=== PATIENT | female | born 1960 | race Caucasian/White ===

== ENCOUNTER → 2016-08-17 | Outpatient (CLI) | payer BC ==
[2016-02-26 14:25] VITALS: BP 132/80
[2016-08-17 12:02] LABS: BILIRUBIN,URINE NEGATIVE (NEGATIVE); BLOOD/HEMOGLOBIN,URINE NEGATIVE (NEGATIVE); GLUCOSE, URINE NEGATIVE (NEGATIVE); KETONES,URINE NEGATIVE (NEGATIVE); LEUKOCYTE ESTERASE ,URINE NEGATIVE (NEGATIVE); NITRITES,URINE NEGATIVE (NEGATIVE); PH,URINE 6.5 (5.0 - 8.0); PROTEIN,URINE NEGATIVE (NEGATIVE); UROBILINOGEN,URINE NORMAL (NORMAL)
[2016-08-17 12:10] LABS: APPEARANCE,URINE CLEAR (CLEAR); BACTERIA,URINE NEGATIVE /HPF (NEGATIVE); COLOR,URINE YELLOW (YELLOW); RBC,URINE 0-1 /HPF (NEGATIVE); SQUAMOUS EPITHELIAL CELL,UR RARE /HPF (NEGATIVE)
[2016-08-17 12:15] LABS: ALANINE AMINOTRANSFERASE 31 Units/L (12-78); ALBUMIN 3.8 g/dL (3.4-5.0); ALKALINE PHOSPHATASE 67 Units/L (46-116); ASPARTATE AMINO TRANSFERASE 18 Units/L (15-37); BLOOD UREA NITROGEN 18 mg/dL (7-18); CALCIUM 9.4 mg/dL (8.5-10.1); CARBON DIOXIDE 26.6 mmol/L (21-32); CHLORIDE 105 mmol/L (98-107); CREATININE 0.93 mg/dL (0.55-1.02); GLUCOSE 106 mg/dL (65-99); SODIUM 141 mmol/L (136-145); TOTAL PROTEIN 7.4 g/dL (6.4-8.2); eGFR BLACK RACES > 60 (>60); eGFR NON BLACK RACES > 60 (>60)
[2016-08-17 12:21] LABS: BASOPHILS # (AUTO) 0.1 X10^3/uL (0.0-0.1); BASOPHILS % (AUTO) 0.9 % (0.2-1.0); EOSINOPHILS # (AUTO) 0.2 x10^3/uL (0.0-0.2); EOSINOPHILS % (AUTO) 3.3 % (0.9-2.9); HEMATOCRIT 38.3 % (36.0-47.0); HEMOGLOBIN 13.2 g/dL (12.0-16.0); LYMPHOCYTES # (AUTO) 2.6 X10^3/uL (1.3-2.9); MEAN CORPUSCULAR HEMOGLOBIN 30.5 pg (27.0-34.0); MEAN CORPUSCULAR HGB CONC 34.4 g/dL (33.0-35.0); MEAN CORPUSCULAR VOLUME 88.6 fL (80.0-100.0); MEAN PLATELET VOLUME 9.6 fL (7.4-11.0); MONOCYTES # (AUTO) 0.5 x10^3/uL (0.3-0.8); NEUTROPHILS # (AUTO) 3.5 x10^3/uL (2.2-4.8); NEUTROPHILS % (AUTO) 50.8 % (42.0-75.0); PLATELET COUNT 182 X10^3/uL (150.0-450.0); RED BLOOD COUNT 4.32 X10^6/uL (3.5-5.4); RED CELL DISTRIBUTION WIDTH 13.2 % (11.6-16.5); WHITE BLOOD COUNT 6.8 X10^3/uL (3.6-10.0)
--- NOTE | 2016-08-17 14:13 | RAD ---
HISTORY: Preop bunion surgery Study: Chest two-view Comparison: February 24, 2016 Findings: The heart is within normal limits in size. The girish are normal. The lungs are well inflated but free of acute alveolar infiltrates. No pleural effusions are identified. The bony thorax is unremarkable . IMPRESSION: No significant abnormality identified Reported By:
== END ==
LOC: LAB 11:21
PROVIDERS: ATTEND Specialist
DX: Z01.818 Encounter for other preprocedural examination (principal); Z01.810 Encounter for preprocedural cardiovascular examination; Z01.811 Encounter for preprocedural respiratory examination; Z79.899 Other long term (current) drug therapy; Z11.8 Encounter for screening for other infectious and parasitic diseases; M21.611 Bunion of right foot; M21.612 Bunion of left foot
CPT/HCPCS: 36415; 71020; 80053; 81001; 85025; 87641; 93005; 93010

== ENCOUNTER 2016-08-19 07:04 | Day surgery (SDC) | payer BC ==
[2016-08-19] MEDS ORDERED: NS 50 ML IV + SPIKE MINIBAG* 50 ML IV ONE (07:18)
[2016-08-19] MEDS ORDERED: D5 LR 1000 ML 1,000 ML IV ONE (07:18)
[2016-08-19] MEDS ORDERED: ANCEF VIAL 1 GM ONE (07:18)
[2016-08-19] MEDS ORDERED: MARCAINE 0.25% INJ ONE (07:45)
[2016-08-19] MEDS ORDERED: FENTANYL INJ 250 mcg ONE (08:14)
[2016-08-19] MEDS ORDERED: NS IRRIGATION 1000 ML 1,000 ML with BACITRACIN VIAL 50,000 UNT IR ONE ×2 (09:08)
[2016-08-19] MEDS ORDERED: LR 1000 ML IV 1,000 ML IV ONE (09:47)
[2016-08-19] MEDS ORDERED: DILAUDID INJ ONE (10:37)
[2016-08-19] MEDS ORDERED: ZOFRAN INJ 4 MG VIAL IVP PRN (10:39)
[2016-08-19] MEDS ORDERED: REGLAN INJ 10 MG VIAL IVP PRN (10:39)
[2016-08-19] MEDS ORDERED: BENADRYL INJ 50 MG VIAL IVP PRN (10:39)
[2016-08-19] MEDS ORDERED: PHENERGAN INJ 25 MG IVP PRN (10:39)
[2016-08-19] MEDS: DILAUDID INJ IVP PRN ×4 (10:40→11:06)
[2016-08-19 12:19] VITALS: BP 113/73
[2016-08-19] MEDS ORDERED: REGLAN INJ 10 MG VIAL ONE (14:16)
[2016-08-19] MEDS ORDERED: SUPRANE IN ONE (14:16)
[2016-08-19] MEDS ORDERED: DIPRIVAN VIAL ONE (14:16)
[2016-08-19] MEDS ORDERED: ZOFRAN INJ 4 MG VIAL ONE (14:16)
[2016-08-19] MEDS ORDERED: VERSED ONE (14:16)
== END 2016-08-19 12:10 | disposition home or self-care (01) | DRG 505 ==
LOC: SURG1 07:04
PROVIDERS: ATTEND Specialist
PROC: 0QBR0ZZ Excision of Left Toe Phalanx, Open Approach (ICD-10-PCS; principal; 2016-08-19 08:30)
PROC: 0QSN0ZZ Reposition Right Metatarsal, Open Approach (ICD-10-PCS; principal; 2016-08-19 08:30)
DX: M21.611 Bunion of right foot (principal); M21.612 Bunion of left foot; M20.11 Hallux valgus (acquired), right foot; M20.12 Hallux valgus (acquired), left foot
CPT/HCPCS: A4222; S0020; J0690; J1170; J2250; J2405; J2765; J3010; J3490; J7120

== ENCOUNTER → 2016-10-01 | Outpatient (CLI) | payer BC ==
--- NOTE | 2016-10-01 12:02 | RAD ---
HISTORY: Followup from surgery Study: 3 views of the right foot. Comparison: None Findings: No acute fracture or dislocation. Status post surgical repair of hallux valgus. No significant soft tissue swelling or injury can be seen. IMPRESSION: 1. No acute abnormalities in the right foot. Expected postsurgical findings. Reported By:
--- NOTE | 2016-10-01 12:03 | RAD ---
HISTORY: Followup from surgery Study: 3 views of the left foot. Comparison: None Findings: No acute fracture or dislocation. Expected postsurgical findings status post hallux valgus repair sup erior Joint spaces are well aligned. No significant soft tissue swelling or injury can be seen. IMPRESSION: 1. No acute abnormalities in the left foot. Expected postsurgical findings. Reported By:
== END ==
LOC: RAD 10:01
PROVIDERS: ATTEND Specialist
DX: M20.11 Hallux valgus (acquired), right foot (principal); M20.12 Hallux valgus (acquired), left foot
CPT/HCPCS: 73630

== ENCOUNTER 2022-11-09 08:02 | Inpatient (IN) ==
--- NOTE | 2022-11-09 08:14 | DR.SOBA ---
HPI Time Seen Time Seen by Provider: 11/09/22 08:13 Primary Care Physician Primary Care Physician: EMILY Fuentes HPI Comment HPI Comment: PATIENT IS 62YR OLD FEMALE IN ER WITH SUDDEN ONSET OF SOB ABD OXYGEN DESATURATION THAT STARTED THIS AM. PATIENT HAVE HAD COUGH AND CONGESTION FOR PAST FEW DAYS. PATIENT HAVE HISTORY OF Complaints Chief Complaint Doctors Comments: SOB AND OXYGEN DESATURATION TIS AM. COUGH AND CONGESTION FOR FEW DAYS. Chief Complaint:: Pt c/o 4-5 days of productive cough with green sputum. Pt states that while at work this morning she wasn't feeling well and went to walk to her car and suddenly felt like it was very hard to breathe and as if she mi ght pass out. Source History Provided: Patient Mode of Arrival Mode of Arrival: Ambulatory Timing Onset of Chief Complaint: 11/09/22 PMH PMH Past Medical History: Yes Past Medical History: Anxiety, Dyslipidemia, GERD and Hypertension Past Medical History Comment: DVT,PE Past Surgical History: Yes Surgical History: Appendectomy and Cholecystectomy Past Surgical History Comment: Yari Ely Family History History of Family Medical Conditions: Yes Family Medical History: Cancer, [place], Coronary Artery Disease and Hypertension Social History Does patient currently use any type of tobacco product: No Have you used tobacco products in the last 12 months: No Type of Tobacco Use: None Does any household member use tobacco: No Alcohol Use: None Do you use any recreational Drugs:: No Lives With: Spouse Lives Where: Home Infectious screening In the last 2 months have you had wt loss of >10#?: NO Have you had fever, night sweats or hemotysis?: No Have you traveled outside the country in the last 6 months?: No Isolation: Droplet PE Vital Signs Vitals: Vital Signs Temperature 98.1 F Pulse Rate 91 Pulse Rate 84 Pulse Rate 83 Pulse Rate 91 Pulse Rate 92 Pulse Rate 88 Pulse Rate 89 Pulse Rate 93 Pulse Rate 102 Pulse Rate 95 Pulse Rate 84 Pulse Rate 85 Pulse Rate 84 Pulse Rate 87 Pulse Rate 86 Pulse Rate 84 Pulse Rate 85 Pulse Rate 85 Pulse Rate 87 Pulse Rate 92 Pulse Rate 88 Respiratory Rate 25 Respiratory Rate 19 Respiratory Rate 17 Respiratory Rate 26 Respiratory Rate 36 Respiratory Rate 29 Respiratory Rate 23 Respiratory Rate 29 Respiratory Rate 24 Respiratory Rate 19 Respiratory Rate 22 Respiratory Rate 21 Respiratory Rate 13 Respiratory Rate 24 Respiratory Rate 23 Respiratory Rate 22 Respiratory Rate 23 Respiratory Rate 29 Respiratory Rate 20 Respiratory Rate 24 Respiratory Rate 21 Blood Pressure 106/66 Blood Pressure 116/68 Blood Pressure 109/83 Blood Pressure 108/75 Blood Pressure 113/74 Blood Pressure 123/68 Blood Pressure 89/66 Blood Pressure 96/69 Blood Pressure 96/63 Blood Pressure 108/72 O2 Sat by Pulse Oximetry 99 O2 Sat by Pulse Oximetry 99 O2 Sat by Pulse Oximetry 98 O2 Sat by Pulse Oximetry 92 O2 Sat by Pulse Oximetry 97 O2 Sat by Pulse Oximetry 100 O2 Sat by Pulse Oximetry 98 O2 Sat by Pulse Oximetry 96 O2 Sat by Pulse Oximetry 94 O2 Sat by Pulse Oximetry 83 O2 Sat by Pulse Oximetry 100 O2 Sat by Pulse Oximetry 100 O2 Sat by Pulse Oximetry 98 O2 Sat by Pulse Oximetry 98 O2 Sat by Pulse Oximetry 98 O2 Sat by Pulse Oximetry 99 O2 Sat by Pulse Oximetry 97 O2 Sat by Pulse Oximetry 98 O2 Sat by Pulse Oximetry 86 O2 Sat by Pulse Oximetry 72 O2 Sat by Pulse Oximetry 92 ROR Labs Reviewed 11/09/22 08:18 11/09/22 08:18 Laboratory: WBC 8.0 X10^3/uL (3.6-10.0) 11/09/22 08:18 RBC 4.43 X10^6/uL (3.5-5.4) 11/09/22 08:18 Hgb 13.0 g/dL (12.0-16.0) 11/09/22 08:18 Hct 38.7 % (36.0-47.0) 11/09/22 08:18 MCV 87.4 fL (80.0-100.0) 11/09/22 08:18 MCH 29.3 pg (27.0-34.0) 11/09/22 08:18 MCHC 33.5 g/dL (33.0-35.0) 11/09/22 08:18 RDW 13.7 % (11.6-16.5) 11/09/22 08:18 Plt Count 225 X10^3/uL (150.0-450.0) 11/09/22 08:18 MPV 9.7 fL (7.4-11.0) 11/09/22 08:18 Neut % (Auto) 32.3 % (42.0-75.0) L 11/09/22 08:18 Lymph % (Auto) 54.6 % (21.0-51.0) H 11/09/22 08:18 [place] % (Auto) 8.6 % (0.0-13.0) 11/09/22 08:18 Eos % (Auto) 3.7 % (0.9-2.9) H 11/09/22 08:18 Baso % (Auto) 0.8 % (0.2-1.0) 11/09/22 08:18 Neut # (Auto) 2.6 x10^3/uL (2.2-4.8) 11/09/22 08:18 Lymph # (Auto) 4.4 X10^3/uL (1.3-2.9) H 11/09/22 08:18 [place] # (Auto) 0.7 x10^3/uL (0.3-0.8) 11/09/22 08:18 Eos # (Auto) 0.3 x10^3/uL (0.0-0.2) H 11/09/22 08:18 Baso # (Auto) 0.1 X10^3/uL (0.0-0.1) 11/09/22 08:18 Absolute Nucleated RBC 0.1 /100WBC 11/09/22 08:18 PT 13.7 SECONDS (11.8-14.3) 11/09/22 08:18 INR Target Range - 11/09/22 08:18 INR 1.07 (0.8-1.3) 11/09/22 08:18 APTT 27.8 SECONDS (22.9-36.5) 11/09/22 08:18 PTT Comment - 11/09/22 08:18 D-Dimer 6.93 ug/ml (0.0-0.57) H 11/09/22 08:18 Sample Site Lra 11/09/22 08:18 ABG pH 7.400 (7.35-7.45) 11/09/22 08:18 ABG pCO2 36.0 mmHg (35.0-45.0) 11/09/22 08:18 ABG pO2 43.0 mmHg (80.0-100.0) L* 11/09/22 08:18 ABG HCO3 22.3 mmol/L (22-26) 11/09/22 08:18 ABG O2 Saturation 79.0 % (90-100) L* 11/09/22 08:18 ABG Base Excess -2.1 mmol/L (-2.0-2.0) L 11/09/22 08:18 Tonny Test Pos 11/09/22 08:18 A-a Gradient 62.0 mmHg 11/09/22 08:18 FiO2 21.0 11/09/22 08:18 Blood Gas Comments Pt trav well eb 11/09/22 08:18 Sodium 143 mmol/L (136-145) 11/09/22 08:18 Corrected Sodium 144 mmol/L (136-145) 11/09/22 08:18 Potassium 3.9 mmol/L (3.5-5.1) 11/09/22 08:18 Chloride 108 mmol/L (98-107) H 11/09/22 08:18 Carbon Dioxide 22.4 mmol/L (21-32) 11/09/22 08:18 BUN 21 mg/dL (7-18) H 11/09/22 08:18 Creatinine 1.33 mg/dL (0.55-1.02) H 11/09/22 08:18 Est GFR (MDRD) Af Amer 52 (>60) L 11/09/22 08:18 Est GFR (MDRD) Non-Af 43 (>60) L 11/09/22 08:18 Glucose 134 mg/dL (65-99) H 11/09/22 08:18 Calcium 9.3 mg/dL (8.5-10.1) 11/09/22 08:18 Corrected Calcium TNP 11/09/22 08:18 Total Bilirubin 0.30 mg/dL (0.2-1.0) 11/09/22 08:18 AST 16 Units/L (15-37) 11/09/22 08:18 ALT 18 Units/L (12-78) 11/09/22 08:18 Alkaline Phosphatase 103 Units/L (46-116) 11/09/22 08:18 Creatine Kinase 60 Units/L (26-192) 11/09/22 08:18 Troponin I High Sens 5.7 ng/L (4.0-60.0) 11/09/22 08:18 B-Natriuretic Peptide 30.3 pg/mL (0-79) 11/09/22 08:18 Total Protein 7.3 g/dL (6.4-8.2) 11/09/22 08:18 Albumin 3.4 g/dL (3.4-5.0) 11/09/22 08:18 Globulin 3.9 g/dL (2.5-4.5) 11/09/22 08:18 Albumin/Globulin Ratio 0.9 Ratio (1.1-2.1) L 11/09/22 08:18 SARS-CoV-2 (PCR) Negative (NEGATIVE) 11/09/22 08:08 Influenza Type A (PCR) Negative (NEGATIVE) 11/09/22 08:08 Influenza Type B (PCR) Negative (NEGATIVE) 11/09/22 08:08 RSV (PCR) Negative (NEGATIVE) 11/09/22 08:08 Opioid Opioid Risk Tool Total: 0 Total Score Risk Category: Low Risk Copyright: Luis Enrique AVENDANO predicting aberrant behaviors Discharge Plan Diagnosis Discharge Problem: Bilateral pulmonary embolism, Hypoxia, Bronchitis Discharge Plan Patient Disposition: 01 HOME, SELF-CARE Condition: Stable Orders to Discharge Patient Discharge Orders: Transfer (Routine); Ordered 11/09/22 Ordered By: TRAVON DEGROOT
--- NOTE | 2022-11-09 08:19 | EKG ---
Test Reason : hypoxia Blood Pressure : */* mmHG Vent. Rate : 85 BPM Atrial Rate : 85 BPM P-R Int : 188 ms QRS Dur : 84 ms QT Int : 364 ms P-R-T Axes : 46 0 -1 degrees QTc Int : 433 ms Normal sinus rhythm Cannot rule out Anterior infarct , age undetermined ns st/t abnormality Abnormal ECG No previous ECGs available Confirmed by Dion Saunders MD ([id number]) on 11/10/2022 9:40:53 AM Referred By: Confirmed By: Dion Saunders MD
[2022-11-09 08:21] LABS: ABG BASE EXCESS -2.1 mmol/L (-2.0-2.0); ABG HCO3 22.3 mmol/L (22-26)
[2022-11-09 08:22] LABS: ABG ALLEN TEST POS
[2022-11-09] MEDS ORDERED: NS 1,000 ML IV 1,000 ML ONE ×2 (08:29→11:08)
[2022-11-09] MEDS: NS 1,000 ML IV 1,000 ML IV SCH ×4 (08:33→20:00)
--- NOTE | 2022-11-09 08:38 | RAD ---
HISTORYShortness of breathSTUDYChest AP portableCOMPARISONNoneFINDINGSHeart size is normal. Ammy are normal. Lung escalante are clear. No pleural effusions are identified. Bony thorax is unremarkable.IMPRESSIONNo significant abnormality identifiedElectronically signed by: NATHANAEL HARE (Nov 09, 2022 08:32:17)
[2022-11-09 08:46] LABS: BASOPHILS # (AUTO) 0.1 X10^3/uL (0.0-0.1); BASOPHILS % (AUTO) 0.8 % (0.2-1.0); EOSINOPHILS # (AUTO) 0.3 x10^3/uL (0.0-0.2); EOSINOPHILS % (AUTO) 3.7 % (0.9-2.9); HEMATOCRIT 38.7 % (36.0-47.0); LYMPHOCYTES # (AUTO) 4.4 X10^3/uL (1.3-2.9); LYMPHOCYTES % (AUTO) 54.6 % (21.0-51.0); MEAN CORPUSCULAR HEMOGLOBIN 29.3 pg (27.0-34.0); MEAN CORPUSCULAR HGB CONC 33.5 g/dL (33.0-35.0); MEAN CORPUSCULAR VOLUME 87.4 fL (80.0-100.0); MEAN PLATELET VOLUME 9.7 fL (7.4-11.0); MONOCYTES # (AUTO) 0.7 x10^3/uL (0.3-0.8); MONOCYTES % (AUTO) 8.6 % (0.0-13.0); NEUTROPHILS # (AUTO) 2.6 x10^3/uL (2.2-4.8); NEUTROPHILS % (AUTO) 32.3 % (42.0-75.0); PLATELET COUNT 225 X10^3/uL (150.0-450.0); RED BLOOD COUNT 4.43 X10^6/uL (3.5-5.4); RED CELL DISTRIBUTION WIDTH 13.7 % (11.6-16.5)
[2022-11-09 08:50] LABS: INR 1.07 (0.8-1.3)
[2022-11-09 09:10] LABS: ALANINE AMINOTRANSFERASE 18 Units/L (12-78); ALBUMIN 3.4 g/dL (3.4-5.0); ALKALINE PHOSPHATASE 103 Units/L (46-116); ASPARTATE AMINO TRANSFERASE 16 Units/L (15-37); BLOOD UREA NITROGEN 21 mg/dL (7-18); CALCIUM 9.3 mg/dL (8.5-10.1); CARBON DIOXIDE 22.4 mmol/L (21-32); CHLORIDE 108 mmol/L (98-107); COR NA(FOR HYPERGLY) 144 mmol/L (136-145); CREATINE KINASE 60 Units/L (26-192); CREATININE 1.33 mg/dL (0.55-1.02); GLUCOSE 134 mg/dL (65-99); POTASSIUM 3.9 mmol/L (3.5-5.1); SODIUM 143 mmol/L (136-145); TOTAL PROTEIN 7.3 g/dL (6.4-8.2); eGFR NON BLACK RACES 43 (>60)
[2022-11-09] MEDS ORDERED: OMNIPAQUE 350 mg/mL 100 mL BTL 100 ML ONE (09:20)
[2022-11-09] MEDS ORDERED: NS 100 ML IV 100 ML ONE (09:20)
--- NOTE | 2022-11-09 10:14 | CT ---
EXAM:CTA, CHESTHISTORY:HYPOXIA; APPENDIX, GB, ABD SURGERYCOMPARISON:CTA chest from 09/25/2021. CT chest from 01/20/2022.TECHNIQUE:CTA chest protocol with axial images from the thoracic inlet to upper abdomen with IV contrast. Sagittal and coronal reformats and MIP images were created. Automated exposure control was utilized.FINDINGS:Limitations: There is streak artifact from contrast in the left subclavian vein and SVC.Thyroid gland is partially obscured by artifact but no abnormality is identified. Non atherosclerotic normal caliber thoracic aorta.There is partial thrombus in the most distal aspect of the right main pulmonary artery image 58 series 4. There is complete or near complete thrombus in the right lower lobe posterior segment, medial segment, lateral segment, and anterior segment. Partial thrombus extends into the right interlobar pulmonary artery. There is complete thrombus in the right middle lobe medial segment image 68 series 4 and near-complete thrombus in the lateral segment image 70 series 4. Pulmonary embolus extends into all upper lobe segments on the right which appear complete. On the left there is PE involving the anterior and apicoposterior segments which is near complete image 40 series 4. There is complete thrombus involving the superior lingular segment image 50 series 4 and involving at least the proximal inferior lingular segment. There is thrombus in the left lower lobe pulmonary artery branches involving most if not all segments, worst in the posterior segment which is complete image 76 series 4. The pulmonary artery trunk measures 3 cm mediolateral image 53 series 4 which is within normal limits. There is reversal of the interventricular septum and a borderline RV to LV ratio of 1.9. There is reflux of contrast into the IVC.The heart is normal in size. No pericardial effusion. No pathologic adenopathy in the thorax. Status post cholecystectomy. Atrophic right kidney. Nodular area in the right breast measures 1.3 cm AP image 62 series 4. No acute osseous abnormality. The trachea and mainstem bronchi appear patent. There are scattered mild ground-glass opacities such as in the lingula, right lower lobe, and left lower lobe on image 68 series 5. No consolidation. No pleural effusion or pneumothorax.IMPRESSION:Bilateral PE as described above. Reversal of the interventricular septum suggests right heart strain.Mild scattered ground-glass opacities are nonspecific but may represent subsegmental atelectasis.Right breast nodule measuring 1.3 cm is similar to prior CTA chest from 09/25/2021. Mammogram and ultrasound performed after this exam described benign ACR category 2 findings. Therefore recommend routine mammogram.THIS IS AN ELECTRONICALLY VERIFIED FINAL [id number]/09/2022 10:09 AM - Electronically signed by Cristopher Sigala MD
[2022-11-09] MEDS ORDERED: HEPARIN SODIUM INJ 5000 UNITS IVP ONE (10:27)
[2022-11-09] MEDS ORDERED: HEPARIN SODIUM INJ 5000 UNITS ONE (10:29)
[2022-11-09] MEDS ORDERED: HEPARIN SODIUM IN D5W 25,000 UNITS/500 ML BAG ONE (10:29)
[2022-11-09] MEDS ORDERED: ROCEPHIN VIAL 1 GRAM IV ONE (10:31)
[2022-11-09] MEDS ORDERED: ROCEPHIN VIAL 1 GRAM ONE (10:32)
[2022-11-09] MEDS: HEPARIN SODIUM IN D5W 25,000 UNITS/500 ML BAG IV PRN (10:56)
[2022-11-09 11:13] LABS: BILIRUBIN,URINE NEGATIVE (NEGATIVE); BLOOD/HEMOGLOBIN,URINE NEGATIVE (NEGATIVE); GLUCOSE, URINE NEGATIVE (NEGATIVE); KETONES,URINE NEGATIVE (NEGATIVE); LEUKOCYTE ESTERASE ,URINE NEGATIVE (NEGATIVE); NITRITES,URINE NEGATIVE (NEGATIVE); PROTEIN,URINE 1+ (NEGATIVE); UROBILINOGEN,URINE NORMAL (NORMAL)
[2022-11-09 11:15] LABS: APPEARANCE,URINE CLEAR (CLEAR); COLOR,URINE YELLOW (YELLOW)
[2022-11-09 11:19] LABS: BACTERIA,URINE NEGATIVE /HPF (NEGATIVE); RBC,URINE NONE SEEN /HPF (0-3); SQUAMOUS EPITHELIAL CELL,UR RARE /HPF (NEGATIVE)
[2022-11-09 11:20] LABS: HYALINE CASTS, URINE RARE /LPF (NEGATIVE)
[2022-11-09] MEDS ORDERED: XANAX PO PRN (12:25)
[2022-11-09] MEDS: ROBITUSSIN DM PO SCH ×3 (13:00→21:46)
[2022-11-09 13:27] LABS: ERYTHROCYTE SEDIMENTATION RATE 6 MM/HOUR (0-20)
[2022-11-09] MEDS: SOLU-Medrol 40 MG VIAL IVP SCH ×4 (14:05→21:46)
--- NOTE | 2022-11-09 15:30 | EKG ---
Test Reason : elevated trponin Blood Pressure : */* mmHG Vent. Rate : 91 BPM Atrial Rate : 91 BPM P-R Int : 198 ms QRS Dur : 78 ms QT Int : 366 ms P-R-T Axes : 44 -3 20 degrees QTc Int : 450 ms Normal sinus rhythm Low voltage QRS Cannot rule out Anterior infarct (cited on or before 09-NOV-2022) Abnormal ECG When compared with ECG of 09-NOV-2022 08:17, (Unconfirmed) anterior t wave abnormality more noticeable Confirmed by Dion Saunders MD ([id number]) on 11/10/2022 9:41:54 AM Referred By: Confirmed By: Dion Saunders MD
--- NOTE | 2022-11-09 17:40 | VAS ---
EXAM:LOWER EXT VENOUS, BILATERALHISTORY:; PECOMPARISON:None available.TECHNIQUE:Multiple gallego scale and color flow Doppler images of the deep venous system were obtained of the right and left lower extremity.FINDINGS:The deep venous system of the right and left lower extremities were evaluated from the level of the common femoral vein through the popliteal vein and posterior tibial veins. Normal color flow and augmentation can be observed. In addition, normal compression is seen throughout the deep venous system.IMPRESSION:Negative for DVT.THIS IS AN ELECTRONICALLY VERIFIED FINAL [id number]/09/2022 5:36 PM - Electronically signed by Steve Adams MD
[2022-11-09 18:15] VITALS: BMI 31.5
[2022-11-09] MEDS: TUSSIONEX PENNKINETIC SUSP PO PRN (19:35)
[2022-11-09] MEDS: ZOCOR TAB 20 MG PO SCH (21:11)
[2022-11-10] MEDS: SOLU-Medrol 40 MG VIAL IVP SCH ×3 (06:03→20:45)
[2022-11-10 06:48] LABS: BASOPHILS % (AUTO) 0.4 % (0.2-1.0); HEMATOCRIT 35.4 % (36.0-47.0); HEMOGLOBIN 12.3 g/dL (12.0-16.0); LYMPHOCYTES # (AUTO) 1.2 X10^3/uL (1.3-2.9); LYMPHOCYTES % (AUTO) 16.7 % (21.0-51.0); MEAN CORPUSCULAR HEMOGLOBIN 30.1 pg (27.0-34.0); MEAN CORPUSCULAR HGB CONC 34.7 g/dL (33.0-35.0); MEAN CORPUSCULAR VOLUME 86.8 fL (80.0-100.0); MEAN PLATELET VOLUME 9.5 fL (7.4-11.0); MONOCYTES # (AUTO) 0.3 x10^3/uL (0.3-0.8); MONOCYTES % (AUTO) 3.5 % (0.0-13.0); NEUTROPHILS # (AUTO) 5.8 x10^3/uL (2.2-4.8); NEUTROPHILS % (AUTO) 79.4 % (42.0-75.0); PLATELET COUNT 202 X10^3/uL (150.0-450.0); RED BLOOD COUNT 4.07 X10^6/uL (3.5-5.4); RED CELL DISTRIBUTION WIDTH 13.7 % (11.6-16.5); WHITE BLOOD COUNT 7.3 X10^3/uL (3.6-10.0)
[2022-11-10 07:09] LABS: ALANINE AMINOTRANSFERASE 18 Units/L (12-78); ALKALINE PHOSPHATASE 94 Units/L (46-116); ASPARTATE AMINO TRANSFERASE 13 Units/L (15-37); BLOOD UREA NITROGEN 15 mg/dL (7-18); CALCIUM 9.1 mg/dL (8.5-10.1); CARBON DIOXIDE 24.1 mmol/L (21-32); CHLORIDE 111 mmol/L (98-107); COR CA(FOR HYPOALB) 9.9 mg/dL (8.5-10.1); COR NA(FOR HYPERGLY) 145 mmol/L (136-145); CREATININE 1.14 mg/dL (0.55-1.02); GLUCOSE 160 mg/dL (65-99); MAGNESIUM 1.6 mg/dL (2.0-2.9); POTASSIUM 3.9 mmol/L (3.5-5.1); SODIUM 144 mmol/L (136-145); TOTAL PROTEIN 6.7 g/dL (6.4-8.2); eGFR NON BLACK RACES 52 (>60)
[2022-11-10] MEDS: PROTONIX TAB 40 MG PO SCH (09:45)
[2022-11-10] MEDS: ROCEPHIN VIAL 1 GRAM 1 G in NS 100 ML IV 100 ML IV SCH (09:45)
[2022-11-10] MEDS: PROzac PO SCH (09:45)
[2022-11-10] MEDS: TRICOR TAB 48 MG PO SCH (09:45)
[2022-11-10] MEDS: ROBITUSSIN DM PO SCH ×3 (09:45→17:30)
[2022-11-10] MEDS ORDERED: TYLENOL 325 MG TAB PO ONE (10:20)
[2022-11-10] MEDS: TYLENOL 325 MG TAB PO PRN (10:25)
[2022-11-10] MEDS: HEPARIN SODIUM IN D5W 25,000 UNITS/500 ML BAG IV PRN (10:32)
[2022-11-10] MEDS: NS 1,000 ML IV 1,000 ML IV SCH (12:00)
--- NOTE | 2022-11-10 18:32 | DR.H&P ---
H&P - History & Physical for Day of: H&P Date: 11/09/22 - Chief Complaint Chief Complaint: SOB - History of Present Illness History of Present Illness: PATIENT IS 62YR OLD FEMALE IN ER WITH SUDDEN ONSET OF SOB ABD OXYGEN DESATURATION THAT STARTED THIS AM. PATIENT HAVE HAD COUGH AND CONGESTION FOR PAST WEEK. PT REPORTS NO ENERGY. PT HAS PMH OF GERD, PE, HTN AND OA. - Past Medical History Past Medical History: Hypertension, Dyslipidemia, Anxiety, GERD - Past Surgical History Surgical History: Appendectomy, Cholecystectomy, Other - Family History Family Medical History: Cancer, [place], Coronary Artery Disease, Hypertension - Social History Does patient currently use any type of tobacco product: No Have you used tobacco products in the last 12 months: No Type of Tobacco Use: None Does any household member use tobacco: No Alcohol Use: None - Review of Systems Constitutional: Malaise Eyes: No Symptoms Reported ENT: No Symptoms Reported Respiratory: Cough, Shortness of Breath Cardiovascular: Palpitations Gastrointestinal: Nausea Genitourinary: No Symptoms Reported Musculoskeletal: No Symptoms Reported Skin: No Symptoms Reported Neurological: No Symptoms Reported - Physical Exam Vital Signs: Vital Signs Temperature 98.0 F Temperature 98.3 F Pulse Rate [Bilateral Radial] 89 Pulse Rate [Bilateral Radial] 98 Pulse Rate [Bilateral Radial] 98 Pulse Rate [Bilateral Radial] 86 Pulse Rate [Bilateral Radial] 86 Pulse Rate [Bilateral Radial] 94 Pulse Rate [Bilateral Radial] 94 Pulse Rate 88 Pulse Rate 91 Pulse Rate 91 Pulse Rate 97 Pulse Rate 98 Pulse Rate 92 Pulse Rate 87 Pulse Rate 90 Pulse Rate 89 Pulse Rate 95 Pulse Rate 93 Pulse Rate 90 Pulse Rate 103 Pulse Rate 97 Pulse Rate 94 Pulse Rate 92 Pulse Rate 96 Pulse Rate 90 Pulse Rate 86 Pulse Rate 96 Pulse Rate 93 Pulse Rate 92 Pulse Rate 97 Pulse Rate 94 Pulse Rate 93 Pulse Rate 93 Pulse Rate 95 Pulse Rate 94 Pulse Rate 89 Pulse Rate 92 Pulse Rate 87 Pulse Rate 102 Pulse Rate 92 Pulse Rate 83 Respiratory Rate 30 Respiratory Rate 42 Respiratory Rate 21 Respiratory Rate 33 Respiratory Rate 28 Respiratory Rate 24 Respiratory Rate 27 Respiratory Rate 18 Respiratory Rate 24 Respiratory Rate 21 Respiratory Rate 25 Respiratory Rate 39 Respiratory Rate 19 Respiratory Rate 28 Respiratory Rate 20 Respiratory Rate 34 Respiratory Rate 30 Respiratory Rate 22 Respiratory Rate 19 Respiratory Rate 20 Respiratory Rate 20 Respiratory Rate 22 Respiratory Rate 19 Respiratory Rate 29 Respiratory Rate 19 Respiratory Rate 21 Respiratory Rate 25 Respiratory Rate 30 Respiratory Rate 28 Respiratory Rate 28 Respiratory Rate 23 Respiratory Rate 40 Respiratory Rate 29 Respiratory Rate 25 Respiratory Rate 25 Respiratory Rate 27 Respiratory Rate 26 Respiratory Rate 20 Respiratory Rate 23 Respiratory Rate 26 Respiratory Rate 28 Respiratory Rate 22 Blood Pressure [Right Arm] 123/70 Blood Pressure [Right Arm] 135/74 Blood Pressure [Right Arm] 128/95 Blood Pressure [Right Arm] 128/65 Blood Pressure [Right Arm] 128/65 Blood Pressure [Right Arm] 131/81 Blood Pressure [Right Arm] 139/76 Blood Pressure 123/70 Blood Pressure 135/74 Blood Pressure 128/65 Blood Pressure 131/81 Blood Pressure 139/76 Blood Pressure 132/75 O2 Sat by Pulse Oximetry 96 O2 Sat by Pulse Oximetry 98 O2 Sat by Pulse Oximetry 96 O2 Sat by Pulse Oximetry 97 O2 Sat by Pulse Oximetry 99 O2 Sat by Pulse Oximetry 97 O2 Sat by Pulse Oximetry 98 O2 Sat by Pulse Oximetry 97 O2 Sat by Pulse Oximetry 97 O2 Sat by Pulse Oximetry 96 O2 Sat by Pulse Oximetry 97 O2 Sat by Pulse Oximetry 96 O2 Sat by Pulse Oximetry 97 O2 Sat by Pulse Oximetry 97 O2 Sat by Pulse Oximetry 96 O2 Sat by Pulse Oximetry 96 O2 Sat by Pulse Oximetry 97 O2 Sat by Pulse Oximetry 96 O2 Sat by Pulse Oximetry 98 O2 Sat by Pulse Oximetry 96 O2 Sat by Pulse Oximetry 96 O2 Sat by Pulse Oximetry 97 O2 Sat by Pulse Oximetry 98 O2 Sat by Pulse Oximetry 98 O2 Sat by Pulse Oximetry 98 O2 Sat by Pulse Oximetry 97 O2 Sat by Pulse Oximetry 97 O2 Sat by Pulse Oximetry 97 O2 Sat by Pulse Oximetry 96 O2 Sat by Pulse Oximetry 96 O2 Sat by Pulse Oximetry 98 O2 Sat by Pulse Oximetry 94 O2 Sat by Pulse Oximetry 95 O2 Sat by Pulse Oximetry 98 O2 Sat by Pulse Oximetry 98 O2 Sat by Pulse Oximetry 98 O2 Sat by Pulse Oximetry 97 O2 Sat by Pulse Oximetry 97 O2 Sat by Pulse Oximetry 89 O2 Sat by Pulse Oximetry 99 O2 Sat by Pulse Oximetry 97 Oriented: Normal Eyes: Normal, Diplopia Nose: Normal Throat: Normal Respiratory: Diminished Throughout Cardiovascular: Normal. negative: Edema : Normal Auscultation: Bowel Sounds: Normal Palpation: Normal Tenderness: Normal Skin: Normal Musculoskeletal: Normal Psychiatric: Anxiety Affect: Anxious Speech Pattern: Clear, Appropriate - Assessment/Plan (1) Bilateral pulmonary embolism Status: Acute Plan: ADMIT ICU, CARDIAC MONITORING. SUPPLEMENTAL O2. IV HYDRATION, I&OS, ABG ON ADMISSION. HEPARIN DRIP PER PROTCOL. VERIFY HOME MEDICATION. RESP AIT SWAB, IV ABTX, SOLU MEDROL (2) Hypoxia Status: Acute - Allergies Allergies/Adverse Reactions: Allergies Allergy/AdvReac Type Severity Reaction Status Date / Time No Known Allergies Allergy Verified 11/09/22 08:14 - Medications Home Medications: Home Medications Medication Instructions Recorded Confirmed alprazolam 0.5 mg tablet 0.5 mg PO QDAY PRN 11/09/22 11/09/22 aspirin 81 mg tablet 81 mg PO HS 11/09/22 11/09/22 fenofibrate 54 mg tablet 54 mg PO QDAY 11/09/22 11/09/22 fexofenadine-pseudoephedrine ER 1 tab PO QDAY 11/09/22 11/09/22 180 mg-240 mg tablet,ext.release 24 hr (Marissa-D 24 Hour) fluoxetine 10 mg capsule 10 mg PO DAILY 11/09/22 11/09/22 ibuprofen 800 mg tablet (IBU) 800 mg PO TID PRN 11/09/22 11/09/22 metoprolol tartrate 50 mg tablet 50 mg PO BID 11/09/22 11/09/22 pantoprazole 40 mg tablet,delayed 40 mg PO QDAY 11/09/22 11/09/22 release quetiapine 25 mg tablet 25 mg PO QPM 11/09/22 11/09/22 simvastatin 20 mg tablet 20 mg PO QPM 11/09/22 11/09/22 topiramate 50 mg tablet 50 mg PO BID 11/09/22 11/09/22
[2022-11-10] MEDS: TUSSIONEX PENNKINETIC SUSP PO PRN (20:44)
[2022-11-10] MEDS: ZOCOR TAB 20 MG PO SCH (20:45)
[2022-11-10] MEDS: SEROquel TAB 25 mg PO SCH (20:45)
[2022-11-11] MEDS: ROBITUSSIN DM PO SCH ×4 (03:25→20:03)
[2022-11-11] MEDS: SOLU-Medrol 40 MG VIAL IVP SCH ×3 (03:27→14:33)
[2022-11-11 05:24] LABS: BASOPHILS % (AUTO) 0 % (0.2-1.0); HEMATOCRIT 32.9 % (36.0-47.0); HEMOGLOBIN 11.4 g/dL (12.0-16.0); LYMPHOCYTES # (AUTO) 1.5 X10^3/uL (1.3-2.9); LYMPHOCYTES % (AUTO) 11.3 % (21.0-51.0); MEAN CORPUSCULAR HGB CONC 34.7 g/dL (33.0-35.0); MEAN CORPUSCULAR VOLUME 86.5 fL (80.0-100.0); MEAN PLATELET VOLUME 9.8 fL (7.4-11.0); MONOCYTES # (AUTO) 0.3 x10^3/uL (0.3-0.8); NEUTROPHILS # (AUTO) 11.9 x10^3/uL (2.2-4.8); NEUTROPHILS % (AUTO) 86.7 % (42.0-75.0); PLATELET COUNT 197 X10^3/uL (150.0-450.0); RED CELL DISTRIBUTION WIDTH 13.9 % (11.6-16.5); WHITE BLOOD COUNT 13.7 X10^3/uL (3.6-10.0)
[2022-11-11 05:35] LABS: ALANINE AMINOTRANSFERASE 14 Units/L (12-78); ALBUMIN 2.9 g/dL (3.4-5.0); ALKALINE PHOSPHATASE 84 Units/L (46-116); ASPARTATE AMINO TRANSFERASE 10 Units/L (15-37); BLOOD UREA NITROGEN 14 mg/dL (7-18); CALCIUM 9.2 mg/dL (8.5-10.1); CARBON DIOXIDE 23.7 mmol/L (21-32); CHLORIDE 111 mmol/L (98-107); COR CA(FOR HYPOALB) 10.1 mg/dL (8.5-10.1); COR NA(FOR HYPERGLY) 147 mmol/L (136-145); CREATININE 1.02 mg/dL (0.55-1.02); GLUCOSE 155 mg/dL (65-99); POTASSIUM 4.2 mmol/L (3.5-5.1); SODIUM 146 mmol/L (136-145); TOTAL PROTEIN 6.4 g/dL (6.4-8.2); eGFR NON BLACK RACES 59 (>60)
[2022-11-11] MEDS: NS 1,000 ML IV 1,000 ML IV SCH ×2 (05:38→14:34)
[2022-11-11] MEDS ORDERED: CONSULT PHARMACY - POTASSIUM & MAGNESIUM XX SCH ×2 (06:00)
[2022-11-11] MEDS ORDERED: MAG-OX TAB PO SCH (09:00)
[2022-11-11 09:07] LABS: ABG BASE EXCESS -0.4 mmol/L (-2.0-2.0); ABG HCO3 24.1 mmol/L (22-26)
[2022-11-11 09:08] LABS: ABG ALLEN TEST POS
[2022-11-11] MEDS: PROTONIX TAB 40 MG PO SCH (09:36)
[2022-11-11] MEDS: ELIQUIS PO SCH ×2 (09:36→20:03)
[2022-11-11] MEDS: PROzac PO SCH (09:36)
[2022-11-11] MEDS: TRICOR TAB 48 MG PO SCH (09:37)
[2022-11-11] MEDS: ROCEPHIN VIAL 1 GRAM 1 G in NS 100 ML IV 100 ML IV SCH (09:37)
[2022-11-11] MEDS: TYLENOL 325 MG TAB PO PRN (09:47)
--- NOTE | 2022-11-11 10:17 | RAD ---
EXAM:Chest AP portableHISTORY:Pulmonary embolus, pneumonia, shortness of breathCOMPARISON:11/09/2022FINDINGS:Hear t size is normal. Ammy are normal. There is a focus of subsegmental atelectasis in the left lung apex. Remainder of lung escalante are clear. No pleural effusions are identified. Bony thorax is unremarkable.IMPRESSION:No acute infiltratesSubsegmental atelectasis left upper lobeTHIS IS AN ELECTRONICALLY VERIFIED FINAL [id number]/11/2022 10:14 AM - Electronically signed by Hardeep Reddy MD
--- NOTE | 2022-11-11 18:00 | PCM.PROG ---
Progress Note - Progress Note for Day of Date of Exam: 11/10/22 - Subjective Subjective: PT IS 62 WF, ER ADMISSION WITH HYPOXIA DUE TO PE AND PNEUMONIA CONFIRMED ON CTA CHEST. PT IS CURRENTLY ON HEPARIN DRIP, IV ATBX THERAPY, SOLU MEDROL IV AND RESP THERAPY. PT HAS BEEN ON SUPPLEMENTAL O2, WITH ADMISSION PO2 ON ROOM AIR IN 40S. PT REPORTS SHE DID NOT REST WELL LAST PM. PT REPORTS MILD COUGH AND HOARSENESS. PT HAD ELEVATED TROPONIN AFTER ADMISSION THAT RESUMED TO NORMAL WITHOUT CO CHEST PAIN. PT DENIES ANY MPH OF CAD AND HAD ECHO AND STRESS TEST ~ 2020. PLAN TO OBATIN LAST STRESS TEST AND CONTINUE TREATMENT OF ACUTE RESP ILLNESS. - Past Medical Family Social History Past Med/Fam/Surg Hx: No changes since H&P Allergies: Allergies No Known Allergies Allergy (Verified 11/09/22 08:14) - Review of Systems ROS: No change since H&P - Vital Signs and I&O's Vital Signs: Vital Signs Temperature 98.4 F Temperature 98.4 F Temperature 97.9 F Pulse Rate [Bilateral Radial] 90 Pulse Rate [Bilateral Radial] 90 Pulse Rate [Bilateral Radial] 84 Pulse Rate [Bilateral Radial] 82 Pulse Rate [Bilateral Radial] 85 Pulse Rate [Bilateral Radial] 78 Pulse Rate [Bilateral Radial] 78 Pulse Rate [Bilateral Radial] 78 Pulse Rate 98 Pulse Rate 98 Pulse Rate 84 Pulse Rate 85 Pulse Rate 85 Pulse Rate 78 Pulse Rate 78 Pulse Rate 78 Respiratory Rate 22 Respiratory Rate 23 Respiratory Rate 22 Respiratory Rate 23 Respiratory Rate 17 Respiratory Rate 17 Respiratory Rate 22 Respiratory Rate 19 Respiratory Rate 22 Respiratory Rate 22 Respiratory Rate 16 Respiratory Rate 16 Respiratory Rate 16 Respiratory Rate 16 Respiratory Rate 18 Respiratory Rate 16 Respiratory Rate 16 Blood Pressure [Right Arm] 130/67 Blood Pressure [Right Arm] 130/67 Blood Pressure [Right Arm] 126/63 Blood Pressure [Right Arm] 123/68 Blood Pressure [Right Arm] 125/72 Blood Pressure [Right Arm] 124/67 Blood Pressure [Right Arm] 124/67 Blood Pressure [Right Arm] 124/67 Blood Pressure 139/79 Blood Pressure 139/79 Blood Pressure 126/63 Blood Pressure 125/72 Blood Pressure 125/72 Blood Pressure 124/67 Blood Pressure 124/67 Blood Pressure 124/67 O2 Sat by Pulse Oximetry 97 O2 Sat by Pulse Oximetry 97 O2 Sat by Pulse Oximetry 97 O2 Sat by Pulse Oximetry 97 O2 Sat by Pulse Oximetry 97 O2 Sat by Pulse Oximetry 97 O2 Sat by Pulse Oximetry 98 O2 Sat by Pulse Oximetry 97 O2 Sat by Pulse Oximetry 98 O2 Sat by Pulse Oximetry 98 O2 Sat by Pulse Oximetry 97 O2 Sat by Pulse Oximetry 97 O2 Sat by Pulse Oximetry 97 O2 Sat by Pulse Oximetry 97 O2 Sat by Pulse Oximetry 97 O2 Sat by Pulse Oximetry 98 Intake and Output: Intake & Output 11/09/22 11/10/22 11/11/22 11/12/22 11:59 11:59 11:59 11:59 Intake Total 2026 1490 / 1490 1968 Balance 2026 1490 / 1490 1968 - Physical Exam Oriented: Normal Eyes: Normal, Diplopia Nose: Normal Throat: Normal Respiratory: Diminished, Wheezes Cardiovascular: Normal. negative: Edema : Normal Auscultation: Bowel Sounds: Normal Tenderness: Normal Skin: Normal Musculoskeletal: Normal Psychiatric: Anxiety Affect: Anxious Speech Pattern: Clear, Appropriate - Laboratory and Diagnostics Result Diagrams: 11/11/22 04:25 11/11/22 04:25 Labs: 11/11/22 08:50 Sputum - Expectorated Sputum - Final 11/09/22 08:18 Blood Blood Culture - Preliminary 11/09/22 08:05 Blood Blood Culture - Preliminary Laboratory WBC 13.7 X10^3/uL (3.6-10.0) H 11/11/22 04:25 RBC 3.80 X10^6/uL (3.5-5.4) 11/11/22 04:25 Hgb 11.4 g/dL (12.0-16.0) L 11/11/22 04:25 Hct 32.9 % (36.0-47.0) L 11/11/22 04:25 MCV 86.5 fL (80.0-100.0) 11/11/22 04:25 MCH 30.0 pg (27.0-34.0) 11/11/22 04:25 MCHC 34.7 g/dL (33.0-35.0) 11/11/22 04:25 RDW 13.9 % (11.6-16.5) 11/11/22 04:25 Plt Count 197 X10^3/uL (150.0-450.0) 11/11/22 04:25 MPV 9.8 fL (7.4-11.0) 11/11/22 04:25 Neut % (Auto) 86.7 % (42.0-75.0) H 11/11/22 04:25 Lymph % (Auto) 11.3 % (21.0-51.0) L 11/11/22 04:25 [place] % (Auto) 2.0 % (0.0-13.0) 11/11/22 04:25 Eos % (Auto) 0.0 % (0.9-2.9) L 11/11/22 04:25 Baso % (Auto) 0 % (0.2-1.0) L 11/11/22 04:25 Neut # (Auto) 11.9 x10^3/uL (2.2-4.8) H 11/11/22 04:25 Lymph # (Auto) 1.5 X10^3/uL (1.3-2.9) 11/11/22 04:25 [place] # (Auto) 0.3 x10^3/uL (0.3-0.8) 11/11/22 04:25 Eos # (Auto) 0.0 x10^3/uL (0.0-0.2) 11/11/22 04:25 Baso # (Auto) 0.0 X10^3/uL (0.0-0.1) 11/11/22 04:25 Absolute Nucleated RBC 0.0 /100WBC 11/11/22 04:25 ESR 6 MM/HOUR (0-20) 11/09/22 12:55 PT 13.7 SECONDS (11.8-14.3) 11/09/22 08:18 INR Target Range - 11/09/22 08:18 INR 1.07 (0.8-1.3) 11/09/22 08:18 APTT 97.1 SECONDS (22.9-36.5) H 11/11/22 04:25 PTT Comment - 11/11/22 04:25 D-Dimer 6.93 ug/ml (0.0-0.57) H 11/09/22 08:18 Sample Site Lr 11/11/22 09:05 ABG pH 7.410 (7.35-7.45) 11/11/22 09:05 ABG pCO2 38.0 mmHg (35.0-45.0) 11/11/22 09:05 ABG pO2 54.0 mmHg (80.0-100.0) L 11/11/22 09:05 ABG HCO3 24.1 mmol/L (22-26) 11/11/22 09:05 ABG O2 Saturation 88.0 % (90-100) L 11/11/22 09:05 ABG Base Excess -0.4 mmol/L (-2.0-2.0) 11/11/22 09:05 Tonny Test Pos 11/11/22 09:05 A-a Gradient 48.0 mmHg 11/11/22 09:05 FiO2 21.0 11/11/22 09:05 Blood Gas Comments Pt trav well cdn 11/11/22 09:05 Sodium 146 mmol/L (136-145) H 11/11/22 04:25 Corrected Sodium 147 mmol/L (136-145) H 11/11/22 04:25 Potassium 4.2 mmol/L (3.5-5.1) 11/11/22 04:25 Chloride 111 mmol/L (98-107) H 11/11/22 04:25 Carbon Dioxide 23.7 mmol/L (21-32) 11/11/22 04:25 BUN 14 mg/dL (7-18) 11/11/22 04:25 Creatinine 1.02 mg/dL (0.55-1.02) 11/11/22 04:25 Est GFR (MDRD) Af Amer > 60 (>60) 11/11/22 04:25 Est GFR (MDRD) Non-Af 59 (>60) 11/11/22 04:25 Glucose 155 mg/dL (65-99) H 11/11/22 04:25 Calcium 9.2 mg/dL (8.5-10.1) 11/11/22 04:25 Corrected Calcium 10.1 mg/dL (8.5-10.1) 11/11/22 04:25 Magnesium 1.8 mg/dL (2.0-2.9) L 11/11/22 04:25 Total Bilirubin 0.10 mg/dL (0.2-1.0) L 11/11/22 04:25 AST 10 Units/L (15-37) L 11/11/22 04:25 ALT 14 Units/L (12-78) 11/11/22 04:25 Alkaline Phosphatase 84 Units/L (46-116) 11/11/22 04:25 Creatine Kinase 60 Units/L (26-192) 11/09/22 08:18 Troponin I High Sens 40.3 ng/L (4.0-60.0) 11/10/22 14:30 C-Reactive Protein 7.70 mg/L (0-3.0) H 11/09/22 12:55 B-Natriuretic Peptide 30.3 pg/mL (0-79) 11/09/22 08:18 Total Protein 6.4 g/dL (6.4-8.2) 11/11/22 04:25 Albumin 2.9 g/dL (3.4-5.0) L 11/11/22 04:25 Globulin 3.5 g/dL (2.5-4.5) 11/11/22 04:25 Albumin/Globulin Ratio 0.8 Ratio (1.1-2.1) L 11/11/22 04:25 Specimen Type Clean catch urine 11/09/22 10:42 Urine Color Yellow (YELLOW) 11/09/22 10:42 Urine Appearance Clear (CLEAR) 11/09/22 10:42 Urine pH 6.0 (5.0 - 8.0) 11/09/22 10:42 Ur Specific [place] 1.020 (1.000-1.030) 11/09/22 10:42 Urine Protein 1+ (NEGATIVE) 11/09/22 10:42 Urine Glucose (UA) Negative (NEGATIVE) 11/09/22 10:42 Urine Ketones Negative (NEGATIVE) 11/09/22 10:42 Urine Blood Negative (NEGATIVE) 11/09/22 10:42 Urine Nitrite Negative (NEGATIVE) 11/09/22 10:42 Urine Bilirubin Negative (NEGATIVE) 11/09/22 10:42 Urine Urobilinogen Normal (NORMAL) 11/09/22 10:42 Ur Leukocyte Esterase Negative (NEGATIVE) 11/09/22 10:42 Urine RBC None seen /HPF (0-3) 11/09/22 10:42 Urine WBC None seen /HPF (0-5) 11/09/22 10:42 Ur Squamous Epith Cells Rare /HPF (NEGATIVE) 11/09/22 10:42 Amorphous Sediment Trace /HPF (NEGATIVE) 11/09/22 10:42 Urine Bacteria Negative /HPF (NEGATIVE) 11/09/22 10:42 Hyaline Casts Rare /LPF (NEGATIVE) 11/09/22 10:42 Urine Mucus Rare /HPF (NEGATIVE) 11/09/22 10:42 Ur Culture Indicated? No/not indicated 11/09/22 10:42 Stl Occult Blood (IFOB) Negative (NEGATIVE) 11/11/22 11:20 SARS-CoV-2 (PCR) Negative (NEGATIVE) 11/09/22 08:08 Influenza Type A (PCR) Negative (NEGATIVE) 11/09/22 08:08 Influenza Type B (PCR) Negative (NEGATIVE) 11/09/22 08:08 RSV (PCR) Negative (NEGATIVE) 11/09/22 08:08 - Plan (1) Bilateral pulmonary embolism Status: Acute Plan: ICU, CARDIAC MONITORING. SUPPLEMENTAL O2. IV HYDRATION, I&OS, ABG ON ADMISSION. HEPARIN DRIP PER PROTCOL. VERIFY HOME MEDICATION. RESP AIT SWAB, IV ABTX, SOLU MEDROL (2) Hypoxia Status: Acute (3) Pneumonia Status: Acute
--- NOTE | 2022-11-11 18:03 | PCM.PROG ---
Progress Note - Progress Note for Day of Date of Exam: 11/11/22 - Subjective Subjective: PT IS 62 WF, ER ADMISSION WITH HYPOXIA DUE TO PE AND PNEUMONIA CONFIRMED ON CTA CHEST. PT IS CURRENTLY ON HEPARIN DRIP, IV ATBX THERAPY, SOLU MEDROL IV AND RESP THERAPY. PLAN TO CONVERT TO PO ELIQUIS TODAY. PT HAS BEEN ON SUPPLEMENTAL O2, WITH ADMISSION PO2 ON ROOM AIR IN 40S. HER ABD THIS MORNING WAS SLIGHTLY IMPROVED WITH PO2 54 ON ROOM AIR. PT WAS SATING 96% AT REST ON ROOM AIR THIS MORNING. PT REPORTS MILDLY PRODUCTIVE COUGH, NO CHEST PAIN. PT STATES SHE SLEPT WELL LAST PM. ECHO ORDERED. PT DENIES ANY MPH OF CAD AND HAD ECHO AND STRESS TEST ~ 2020. PLAN TO OBATIN LAST STRESS TEST AND CONTINUE TREATMENT OF ACUTE RESP ILLNESS. - Past Medical Family Social History Past Med/Fam/Surg Hx: No changes since H&P Allergies: Allergies No Known Allergies Allergy (Verified 11/09/22 08:14) - Review of Systems ROS: No change since H&P - Vital Signs and I&O's Vital Signs: Vital Signs Temperature 98.4 F Temperature 98.4 F Temperature 97.9 F Pulse Rate [Bilateral Radial] 90 Pulse Rate [Bilateral Radial] 90 Pulse Rate [Bilateral Radial] 84 Pulse Rate [Bilateral Radial] 82 Pulse Rate [Bilateral Radial] 85 Pulse Rate [Bilateral Radial] 78 Pulse Rate [Bilateral Radial] 78 Pulse Rate 98 Pulse Rate 98 Pulse Rate 84 Pulse Rate 85 Pulse Rate 85 Pulse Rate 78 Pulse Rate 78 Respiratory Rate 22 Respiratory Rate 23 Respiratory Rate 22 Respiratory Rate 23 Respiratory Rate 17 Respiratory Rate 17 Respiratory Rate 22 Respiratory Rate 19 Respiratory Rate 22 Respiratory Rate 22 Respiratory Rate 16 Respiratory Rate 16 Respiratory Rate 16 Respiratory Rate 16 Respiratory Rate 18 Blood Pressure [Right Arm] 130/67 Blood Pressure [Right Arm] 130/67 Blood Pressure [Right Arm] 126/63 Blood Pressure [Right Arm] 123/68 Blood Pressure [Right Arm] 125/72 Blood Pressure [Right Arm] 124/67 Blood Pressure [Right Arm] 124/67 Blood Pressure 139/79 Blood Pressure 139/79 Blood Pressure 126/63 Blood Pressure 125/72 Blood Pressure 125/72 Blood Pressure 124/67 Blood Pressure 124/67 O2 Sat by Pulse Oximetry 97 O2 Sat by Pulse Oximetry 97 O2 Sat by Pulse Oximetry 97 O2 Sat by Pulse Oximetry 97 O2 Sat by Pulse Oximetry 97 O2 Sat by Pulse Oximetry 97 O2 Sat by Pulse Oximetry 98 O2 Sat by Pulse Oximetry 97 O2 Sat by Pulse Oximetry 98 O2 Sat by Pulse Oximetry 98 O2 Sat by Pulse Oximetry 97 O2 Sat by Pulse Oximetry 97 O2 Sat by Pulse Oximetry 97 O2 Sat by Pulse Oximetry 97 Intake and Output: Intake & Output 11/09/22 11/10/22 11/11/22 11/12/22 11:59 11:59 11:59 11:59 Intake Total 2026 1490 / 1490 1968 Balance 2026 1490 / 1490 1968 - Physical Exam Oriented: Normal Eyes: Normal, Diplopia Nose: Normal Throat: Normal Respiratory: Diminished, Wheezes Cardiovascular: Normal. negative: Edema : Normal Auscultation: Bowel Sounds: Normal Tenderness: Normal Skin: Normal Musculoskeletal: Normal Psychiatric: Anxiety Affect: Anxious Speech Pattern: Clear, Appropriate - Laboratory and Diagnostics Result Diagrams: 11/11/22 04:25 11/11/22 04:25 Labs: 11/11/22 08:50 Sputum - Expectorated Sputum - Final 11/09/22 08:18 Blood Blood Culture - Preliminary 11/09/22 08:05 Blood Blood Culture - Preliminary Laboratory WBC 13.7 X10^3/uL (3.6-10.0) H 11/11/22 04:25 RBC 3.80 X10^6/uL (3.5-5.4) 11/11/22 04:25 Hgb 11.4 g/dL (12.0-16.0) L 11/11/22 04:25 Hct 32.9 % (36.0-47.0) L 11/11/22 04:25 MCV 86.5 fL (80.0-100.0) 11/11/22 04:25 MCH 30.0 pg (27.0-34.0) 11/11/22 04:25 MCHC 34.7 g/dL (33.0-35.0) 11/11/22 04:25 RDW 13.9 % (11.6-16.5) 11/11/22 04:25 Plt Count 197 X10^3/uL (150.0-450.0) 11/11/22 04:25 MPV 9.8 fL (7.4-11.0) 11/11/22 04:25 Neut % (Auto) 86.7 % (42.0-75.0) H 11/11/22 04:25 Lymph % (Auto) 11.3 % (21.0-51.0) L 11/11/22 04:25 [place] % (Auto) 2.0 % (0.0-13.0) 11/11/22 04:25 Eos % (Auto) 0.0 % (0.9-2.9) L 11/11/22 04:25 Baso % (Auto) 0 % (0.2-1.0) L 11/11/22 04:25 Neut # (Auto) 11.9 x10^3/uL (2.2-4.8) H 11/11/22 04:25 Lymph # (Auto) 1.5 X10^3/uL (1.3-2.9) 11/11/22 04:25 [place] # (Auto) 0.3 x10^3/uL (0.3-0.8) 11/11/22 04:25 Eos # (Auto) 0.0 x10^3/uL (0.0-0.2) 11/11/22 04:25 Baso # (Auto) 0.0 X10^3/uL (0.0-0.1) 11/11/22 04:25 Absolute Nucleated RBC 0.0 /100WBC 11/11/22 04:25 ESR 6 MM/HOUR (0-20) 11/09/22 12:55 PT 13.7 SECONDS (11.8-14.3) 11/09/22 08:18 INR Target Range - 11/09/22 08:18 INR 1.07 (0.8-1.3) 11/09/22 08:18 APTT 97.1 SECONDS (22.9-36.5) H 11/11/22 04:25 PTT Comment - 11/11/22 04:25 D-Dimer 6.93 ug/ml (0.0-0.57) H 11/09/22 08:18 Sample Site Lr 11/11/22 09:05 ABG pH 7.410 (7.35-7.45) 11/11/22 09:05 ABG pCO2 38.0 mmHg (35.0-45.0) 11/11/22 09:05 ABG pO2 54.0 mmHg (80.0-100.0) L 11/11/22 09:05 ABG HCO3 24.1 mmol/L (22-26) 11/11/22 09:05 ABG O2 Saturation 88.0 % (90-100) L 11/11/22 09:05 ABG Base Excess -0.4 mmol/L (-2.0-2.0) 11/11/22 09:05 Tonny Test Pos 11/11/22 09:05 A-a Gradient 48.0 mmHg 11/11/22 09:05 FiO2 21.0 11/11/22 09:05 Blood Gas Comments Pt trav well cdn 11/11/22 09:05 Sodium 146 mmol/L (136-145) H 11/11/22 04:25 Corrected Sodium 147 mmol/L (136-145) H 11/11/22 04:25 Potassium 4.2 mmol/L (3.5-5.1) 11/11/22 04:25 Chloride 111 mmol/L (98-107) H 11/11/22 04:25 Carbon Dioxide 23.7 mmol/L (21-32) 11/11/22 04:25 BUN 14 mg/dL (7-18) 11/11/22 04:25 Creatinine 1.02 mg/dL (0.55-1.02) 11/11/22 04:25 Est GFR (MDRD) Af Amer > 60 (>60) 11/11/22 04:25 Est GFR (MDRD) Non-Af 59 (>60) 11/11/22 04:25 Glucose 155 mg/dL (65-99) H 11/11/22 04:25 Calcium 9.2 mg/dL (8.5-10.1) 11/11/22 04:25 Corrected Calcium 10.1 mg/dL (8.5-10.1) 11/11/22 04:25 Magnesium 1.8 mg/dL (2.0-2.9) L 11/11/22 04:25 Total Bilirubin 0.10 mg/dL (0.2-1.0) L 11/11/22 04:25 AST 10 Units/L (15-37) L 11/11/22 04:25 ALT 14 Units/L (12-78) 11/11/22 04:25 Alkaline Phosphatase 84 Units/L (46-116) 11/11/22 04:25 Creatine Kinase 60 Units/L (26-192) 11/09/22 08:18 Troponin I High Sens 40.3 ng/L (4.0-60.0) 11/10/22 14:30 C-Reactive Protein 7.70 mg/L (0-3.0) H 11/09/22 12:55 B-Natriuretic Peptide 30.3 pg/mL (0-79) 11/09/22 08:18 Total Protein 6.4 g/dL (6.4-8.2) 11/11/22 04:25 Albumin 2.9 g/dL (3.4-5.0) L 11/11/22 04:25 Globulin 3.5 g/dL (2.5-4.5) 11/11/22 04:25 Albumin/Globulin Ratio 0.8 Ratio (1.1-2.1) L 11/11/22 04:25 Specimen Type Clean catch urine 11/09/22 10:42 Urine Color Yellow (YELLOW) 11/09/22 10:42 Urine Appearance Clear (CLEAR) 11/09/22 10:42 Urine pH 6.0 (5.0 - 8.0) 11/09/22 10:42 Ur Specific [place] 1.020 (1.000-1.030) 11/09/22 10:42 Urine Protein 1+ (NEGATIVE) 11/09/22 10:42 Urine Glucose (UA) Negative (NEGATIVE) 11/09/22 10:42 Urine Ketones Negative (NEGATIVE) 11/09/22 10:42 Urine Blood Negative (NEGATIVE) 11/09/22 10:42 Urine Nitrite Negative (NEGATIVE) 11/09/22 10:42 Urine Bilirubin Negative (NEGATIVE) 11/09/22 10:42 Urine Urobilinogen Normal (NORMAL) 11/09/22 10:42 Ur Leukocyte Esterase Negative (NEGATIVE) 11/09/22 10:42 Urine RBC None seen /HPF (0-3) 11/09/22 10:42 Urine WBC None seen /HPF (0-5) 11/09/22 10:42 Ur Squamous Epith Cells Rare /HPF (NEGATIVE) 11/09/22 10:42 Amorphous Sediment Trace /HPF (NEGATIVE) 11/09/22 10:42 Urine Bacteria Negative /HPF (NEGATIVE) 11/09/22 10:42 Hyaline Casts Rare /LPF (NEGATIVE) 11/09/22 10:42 Urine Mucus Rare /HPF (NEGATIVE) 11/09/22 10:42 Ur Culture Indicated? No/not indicated 11/09/22 10:42 Stl Occult Blood (IFOB) Negative (NEGATIVE) 11/11/22 11:20 SARS-CoV-2 (PCR) Negative (NEGATIVE) 11/09/22 08:08 Influenza Type A (PCR) Negative (NEGATIVE) 11/09/22 08:08 Influenza Type B (PCR) Negative (NEGATIVE) 11/09/22 08:08 RSV (PCR) Negative (NEGATIVE) 11/09/22 08:08 - Plan (1) Bilateral pulmonary embolism Status: Acute Plan: ICU, CARDIAC MONITORING. SUPPLEMENTAL O2. IV HYDRATION, I&OS, ABG ON ADM ISSION. HEPARIN DRIP PER PROTCOL. VERIFY HOME MEDICATION. RESP AIT SWAB, IV ABTX, SOLU MEDROL (2) Hypoxia Status: Acute (3) Pneumonia Status: Acute
[2022-11-11] MEDS: ZOCOR TAB 20 MG PO SCH (20:03)
[2022-11-11] MEDS: SEROquel TAB 25 mg PO SCH (20:03)
[2022-11-12 05:17] LABS: BASOPHILS % (AUTO) 0.1 % (0.2-1.0); HEMATOCRIT 35.5 % (36.0-47.0); HEMOGLOBIN 12.2 g/dL (12.0-16.0); LYMPHOCYTES # (AUTO) 2.1 X10^3/uL (1.3-2.9); LYMPHOCYTES % (AUTO) 14.4 % (21.0-51.0); MEAN CORPUSCULAR HEMOGLOBIN 29.8 pg (27.0-34.0); MEAN CORPUSCULAR HGB CONC 34.4 g/dL (33.0-35.0); MEAN CORPUSCULAR VOLUME 86.6 fL (80.0-100.0); MEAN PLATELET VOLUME 9.6 fL (7.4-11.0); MONOCYTES # (AUTO) 0.8 x10^3/uL (0.3-0.8); MONOCYTES % (AUTO) 5.3 % (0.0-13.0); NEUTROPHILS # (AUTO) 11.7 x10^3/uL (2.2-4.8); NEUTROPHILS % (AUTO) 80.2 % (42.0-75.0); PLATELET COUNT 214 X10^3/uL (150.0-450.0); RED CELL DISTRIBUTION WIDTH 13.8 % (11.6-16.5); WHITE BLOOD COUNT 14.6 X10^3/uL (3.6-10.0)
[2022-11-12 05:26] LABS: ALANINE AMINOTRANSFERASE 20 Units/L (12-78); ALKALINE PHOSPHATASE 80 Units/L (46-116); ASPARTATE AMINO TRANSFERASE 13 Units/L (15-37); BLOOD UREA NITROGEN 20 mg/dL (7-18); CALCIUM 9.3 mg/dL (8.5-10.1); CHLORIDE 110 mmol/L (98-107); COR CA(FOR HYPOALB) 10.1 mg/dL (8.5-10.1); COR NA(FOR HYPERGLY) 145 mmol/L (136-145); CREATININE 1.11 mg/dL (0.55-1.02); GLUCOSE 118 mg/dL (65-99); SODIUM 145 mmol/L (136-145); TOTAL PROTEIN 6.3 g/dL (6.4-8.2); eGFR NON BLACK RACES 53 (>60)
[2022-11-12 06:16] LABS: ANTI-NUCLEAR ANTIBODY TEST None Detected (None Detected)
[2022-11-12 08:34] LABS: ABG ALLEN TEST POS; ABG BASE EXCESS 3.7 mmol/L (-2.0-2.0); ABG HCO3 27.7 mmol/L (22-26)
[2022-11-12] MEDS: ROBITUSSIN DM PO SCH ×4 (08:43→20:36)
[2022-11-12] MEDS: TRICOR TAB 48 MG PO SCH (08:44)
[2022-11-12] MEDS: ROCEPHIN VIAL 1 GRAM 1 G in NS 100 ML IV 100 ML IV SCH (08:44)
[2022-11-12] MEDS: PROTONIX TAB 40 MG PO SCH (08:44)
[2022-11-12] MEDS: SOLU-Medrol 40 MG VIAL IVP SCH (08:44)
[2022-11-12] MEDS: PROzac PO SCH (08:44)
[2022-11-12] MEDS: ELIQUIS PO SCH ×2 (08:45→20:37)
--- NOTE | 2022-11-12 11:22 | RAD ---
EXAM:CHEST, 1 VIEWHISTORY:JHOAN PE. LOW 02 SATS, SOB;COMPARISON:November 11TECHNIQUE:Portable chest radiographFINDINGS:Heart size and mediastinal contours are normal. Lungs are clear as are the pleural spaces. No free air or pneumothorax. No acute bony abnormality.IMPRESSION:No acute radiographic abnormalities of the chest identifiedTHIS IS AN ELECTRONICALLY VERIFIED FINAL [id number]/12/2022 11:19 AM - Electronically signed by Jose Elias Ayala MD
[2022-11-12] MEDS: NS 1,000 ML IV 1,000 ML IV SCH (12:21)
--- NOTE | 2022-11-12 17:03 | PCM.PROG ---
Progress Note - Progress Note for Day of Date of Exam: 11/12/22 - Subjective Subjective: PT IS 62 WF, ER ADMISSION WITH HYPOXIA DUE TO PE AND PNEUMONIA CONFIRMED ON CTA CHEST. PT HAS BEEN CONVERTED TO PO ELIQUIS. PT HAS BEEN ON SUPPLEMENTAL O2, WITH ADMISSION PO2 ON ROOM AIR IN 40S. HER ABD THIS MORNING WAS SLIGHTLY IMPROVED WITH PO2 60S ON ROOM AIR. PT WAS SATING 96% AT REST ON ROOM AIR THIS MORNING. PLAN TO MOVE TO FLOOR STATUS AND ALLOW GENTLE AMBULATION. CONSULT RESP FOR WALK TEST. PT REPORTS MILDLY PRODUCTIVE COUGH, NO CHEST PAIN. PT STATES SHE SLEPT WELL LAST PM. ECHO ORDERED. PT DENIES ANY MPH OF CAD AND HAD ECHO AND STRESS TEST ~ 2020. PLAN TO OBATIN LAST STRESS TEST AND CONTINUE TREATMENT OF ACUTE RESP ILLNESS. - Past Medical Family Social History Past Med/Fam/Surg Hx: No changes since H&P Allergies: Allergies No Known Allergies Allergy (Verified 11/09/22 08:14) - Review of Systems ROS: No change since H&P - Vital Signs and I&O's Vital Signs: Vital Signs Temperature 98.2 F Temperature 97.9 F Temperature 97.9 F Pulse Rate [Bilateral Radial] 91 Pulse Rate [Bilateral Radial] 100 Pulse Rate [Bilateral Radial] 91 Pulse Rate [Bilateral Radial] 93 Pulse Rate [Bilateral Radial] 91 Pulse Rate [Bilateral Radial] 70 Pulse Rate [Bilateral Radial] 65 Pulse Rate [Bilateral Radial] 75 Respiratory Rate 19 Respiratory Rate 20 Respiratory Rate 17 Respiratory Rate 19 Respiratory Rate 29 Respiratory Rate 20 Respiratory Rate 19 Respiratory Rate 19 Blood Pressure [Right Arm] 142/74 Blood Pressure [Right Arm] 127/70 Blood Pressure [Right Arm] 148/80 Blood Pressure [Right Arm] 165/95 Blood Pressure [Right Arm] 159/89 Blood Pressure [Right Arm] 142/84 Blood Pressure [Right Arm] 138/78 Blood Pressure [Right Arm] 142/85 O2 Sat by Pulse Oximetry 97 O2 Sat by Pulse Oximetry 94 O2 Sat by Pulse Oximetry 95 O2 Sat by Pulse Oximetry 94 O2 Sat by Pulse Oximetry 97 O2 Sat by Pulse Oximetry 97 O2 Sat by Pulse Oximetry 96 O2 Sat by Pulse Oximetry 96 Intake and Output: Intake & Output 11/10/22 11/11/22 11/12/22 11/13/22 11:59 11:59 11:59 11:59 Intake Total 2027 / 2027 1490 / 1490 3710 / 3710 1820 / 1820 Output Total 700 / 700 Balance 2026 1490 / 1490 3010 / 3010 182 / 182 - Physical Exam Oriented: Normal Eyes: Normal, Diplopia Nose: Normal Throat: Normal Respiratory: Diminished, Wheezes Cardiovascular: Normal. negative: Edema : Normal Auscultation: Bowel Sounds: Normal Tenderness: Normal Skin: Normal Musculoskeletal: Normal Psychiatric: Anxiety Affect: Anxious Speech Pattern: Clear, Appropriate - Laboratory and Diagnostics Result Diagrams: 11/12/22 04:40 11/12/22 04:40 Labs: 11/11/22 08:50 Sputum - Expectorated Sputum Sputum Culture - Preliminary 11/11/22 08:50 Sputum - Expectorated Sputum - Final 11/09/22 08:18 Blood Blood Culture - Preliminary 11/09/22 08:05 Blood Blood Culture - Preliminary Laboratory WBC 14.6 X10^3/uL (3.6-10.0) H 11/12/22 04:40 RBC 4.10 X10^6/uL (3.5-5.4) 11/12/22 04:40 Hgb 12.2 g/dL (12.0-16.0) 11/12/22 04:40 Hct 35.5 % (36.0-47.0) L 11/12/22 04:40 MCV 86.6 fL (80.0-100.0) 11/12/22 04:40 MCH 29.8 pg (27.0-34.0) 11/12/22 04:40 MCHC 34.4 g/dL (33.0-35.0) 11/12/22 04:40 RDW 13.8 % (11.6-16.5) 11/12/22 04:40 Plt Count 214 X10^3/uL (150.0-450.0) 11/12/22 04:40 MPV 9.6 fL (7.4-11.0) 11/12/22 04:40 Neut % (Auto) 80.2 % (42.0-75.0) H 11/12/22 04:40 Lymph % (Auto) 14.4 % (21.0-51.0) L 11/12/22 04:40 [place] % (Auto) 5.3 % (0.0-13.0) 11/12/22 04:40 Eos % (Auto) 0.0 % (0.9-2.9) L 11/12/22 04:40 Baso % (Auto) 0.1 % (0.2-1.0) L 11/12/22 04:40 Neut # (Auto) 11.7 x10^3/uL (2.2-4.8) H 11/12/22 04:40 Lymph # (Auto) 2.1 X10^3/uL (1.3-2.9) 11/12/22 04:40 [place] # (Auto) 0.8 x10^3/uL (0.3-0.8) 11/12/22 04:40 Eos # (Auto) 0.0 x10^3/uL (0.0-0.2) 11/12/22 04:40 Baso # (Auto) 0.0 X10^3/uL (0.0-0.1) 11/12/22 04:40 Absolute Nucleated RBC 0.1 /100WBC 11/12/22 04:40 ESR 6 MM/HOUR (0-20) 11/09/22 12:55 PT 13.7 SECONDS (11.8-14.3) 11/09/22 08:18 INR Target Range - 11/09/22 08:18 INR 1.07 (0.8-1.3) 11/09/22 08:18 APTT 25.2 SECONDS (22.9-36.5) 11/12/22 04:40 PTT Comment - 11/12/22 04:40 D-Dimer 6.93 ug/ml (0.0-0.57) H 11/09/22 08:18 Sample Site Lrad 11/12/22 08:30 ABG pH 7.460 (7.35-7.45) H 11/12/22 08:30 ABG pCO2 39.0 mmHg (35.0-45.0) 11/12/22 08:30 ABG pO2 66.0 mmHg (80.0-100.0) L 11/12/22 08:30 ABG HCO3 27.7 mmol/L (22-26) H 11/12/22 08:30 ABG O2 Saturation 94.0 % (90-100) 11/12/22 08:30 ABG Base Excess 3.7 mmol/L (-2.0-2.0) H 11/12/22 08:30 Tonny Test Pos 11/12/22 08:30 A-a Gradient 35.0 mmHg 11/12/22 08:30 FiO2 21.0 11/12/22 08:30 Blood Gas Comments trav well ms 11/12/22 08:30 Sodium 145 mmol/L (136-145) 11/12/22 04:40 Corrected Sodium 145 mmol/L (136-145) 11/12/22 04:40 Potassium 4.0 mmol/L (3.5-5.1) 11/12/22 04:40 Chloride 110 mmol/L (98-107) H 11/12/22 04:40 Carbon Dioxide 30.0 mmol/L (21-32) 11/12/22 04:40 BUN 20 mg/dL (7-18) H 11/12/22 04:40 Creatinine 1.11 mg/dL (0.55-1.02) H 11/12/22 04:40 Est GFR (MDRD) Af Amer > 60 (>60) 11/12/22 04:40 Est GFR (MDRD) Non-Af 53 (>60) L 11/12/22 04:40 Glucose 118 mg/dL (65-99) H 11/12/22 04:40 Calcium 9.3 mg/dL (8.5-10.1) 11/12/22 04:40 Corrected Calcium 10.1 mg/dL (8.5-10.1) 11/12/22 04:40 Magnesium 2.0 mg/dL (2.0-2.9) 11/12/22 04:40 Total Bilirubin 0.20 mg/dL (0.2-1.0) 11/12/22 04:40 AST 13 Units/L (15-37) L 11/12/22 04:40 ALT 20 Units/L (12-78) 11/12/22 04:40 Alkaline Phosphatase 80 Units/L (46-116) 11/12/22 04:40 Creatine Kinase 60 Units/L (26-192) 11/09/22 08:18 Troponin I High Sens 40.3 ng/L (4.0-60.0) 11/10/22 14:30 C-Reactive Protein 7.70 mg/L (0-3.0) H 11/09/22 12:55 B-Natriuretic Peptide 30.3 pg/mL (0-79) 11/09/22 08:18 Total Protein 6.3 g/dL (6.4-8.2) L 11/12/22 04:40 Albumin 3.0 g/dL (3.4-5.0) L 11/12/22 04:40 Globulin 3.3 g/dL (2.5-4.5) 11/12/22 04:40 Albumin/Globulin Ratio 0.9 Ratio (1.1-2.1) L 11/12/22 04:40 Homocysteine 10 umol/L (0-15) 11/09/22 12:55 Specimen Type Clean catch urine 11/09/22 10:42 Urine Color Yellow (YELLOW) 11/09/22 10:42 Urine Appearance Clear (CLEAR) 11/09/22 10:42 Urine pH 6.0 (5.0 - 8.0) 11/09/22 10:42 Ur Specific Whitman 1.020 (1.000-1.030) 11/09/22 10:42 Urine Protein 1+ (NEGATIVE) 11/09/22 10:42 Urine Glucose (UA) Negative (NEGATIVE) 11/09/22 10:42 Urine Ketones Negative (NEGATIVE) 11/09/22 10:42 Urine Blood Negative (NEGATIVE) 11/09/22 10:42 Urine Nitrite Negative (NEGATIVE) 11/09/22 10:42 Urine Bilirubin Negative (NEGATIVE) 11/09/22 10:42 Urine Urobilinogen Normal (NORMAL) 11/09/22 10:42 Ur Leukocyte Esterase Negative (NEGATIVE) 11/09/22 10:42 Urine RBC None seen /HPF (0-3) 11/09/22 10:42 Urine WBC None seen /HPF (0-5) 11/09/22 10:42 Ur Squamous Epith Cells Rare /HPF (NEGATIVE) 11/09/22 10:42 Amorphous Sediment Trace /HPF (NEGATIVE) 11/09/22 10:42 Urine Bacteria Negative /HPF (NEGATIVE) 11/09/22 10:42 Hyaline Casts Rare /LPF (NEGATIVE) 11/09/22 10:42 Urine Mucus Rare /HPF (NEGATIVE) 11/09/22 10:42 Ur Culture Indicated? No/not indicated 11/09/22 10:42 Stl Occult Blood (IFOB) Negative (NEGATIVE) 11/11/22 11:20 ALMA Screen None detected (None Detected) 11/09/22 12:55 ALMA Titer TNP 11/09/22 12:55 ALMA Pattern TNP 11/09/22 12:55 SARS-CoV-2 (PCR) Negative (NEGATIVE) 11/09/22 08:08 Influenza Type A (PCR) Negative (NEGATIVE) 11/09/22 08:08 Influenza Type B (PCR) Negative (NEGATIVE) 11/09/22 08:08 RSV (PCR) Negative (NEGATIVE) 11/09/22 08:08 Resp Viral Panel (PCR) See scanned report 11/09/22 14:47 - Plan (1) Bilateral pulmonary embolism Status: Acute Plan: ICU, CARDIAC MONITORING. SUPPLEMENTAL O2. IV HYDRATION, I&OS, ABG ON ADMISSION. HEPARIN DRIP PER PROTCOL. VERIFY HOME MEDICATION. RESP AIT SWAB, IV ABTX, SOLU MEDROL (2) Hypoxia Status: Acute (3) Pneumonia Status: Acute
[2022-11-12 18:39] LABS: PTT-D HEPARIN NEUT 44 sec (32-48); THROMBIN TIME >150.0 sec (14.7-19.5)
[2022-11-12] MEDS: ZOCOR TAB 20 MG PO SCH (20:36)
[2022-11-12] MEDS: SEROquel TAB 25 mg PO SCH (20:36)
[2022-11-12] MEDS ORDERED: COLACE CAP 100 MG PO SCH (21:00)
[2022-11-13] MEDS: NS 1,000 ML IV 1,000 ML IV SCH (02:59)
[2022-11-13 05:13] LABS: BASOPHILS % (AUTO) 0.1 % (0.2-1.0); EOSINOPHILS % (AUTO) 0.1 % (0.9-2.9); HEMATOCRIT 36.5 % (36.0-47.0); HEMOGLOBIN 12.5 g/dL (12.0-16.0); LYMPHOCYTES # (AUTO) 2.9 X10^3/uL (1.3-2.9); LYMPHOCYTES % (AUTO) 25.8 % (21.0-51.0); MEAN CORPUSCULAR HEMOGLOBIN 29.6 pg (27.0-34.0); MEAN CORPUSCULAR HGB CONC 34.1 g/dL (33.0-35.0); MEAN CORPUSCULAR VOLUME 86.9 fL (80.0-100.0); MONOCYTES # (AUTO) 0.9 x10^3/uL (0.3-0.8); MONOCYTES % (AUTO) 7.8 % (0.0-13.0); NEUTROPHILS # (AUTO) 7.5 x10^3/uL (2.2-4.8); NEUTROPHILS % (AUTO) 66.2 % (42.0-75.0); PLATELET COUNT 210 X10^3/uL (150.0-450.0); RED BLOOD COUNT 4.21 X10^6/uL (3.5-5.4); RED CELL DISTRIBUTION WIDTH 13.7 % (11.6-16.5); WHITE BLOOD COUNT 11.4 X10^3/uL (3.6-10.0)
[2022-11-13 05:27] LABS: ALANINE AMINOTRANSFERASE 25 Units/L (12-78); ALBUMIN 2.9 g/dL (3.4-5.0); ALKALINE PHOSPHATASE 77 Units/L (46-116); ASPARTATE AMINO TRANSFERASE 17 Units/L (15-37); BLOOD UREA NITROGEN 21 mg/dL (7-18); CALCIUM 9.5 mg/dL (8.5-10.1); CARBON DIOXIDE 30.9 mmol/L (21-32); CHLORIDE 108 mmol/L (98-107); COR CA(FOR HYPOALB) 10.4 mg/dL (8.5-10.1); CREATININE 1.05 mg/dL (0.55-1.02); GLUCOSE 105 mg/dL (65-99); POTASSIUM 4.1 mmol/L (3.5-5.1); SODIUM 144 mmol/L (136-145); TOTAL PROTEIN 6.1 g/dL (6.4-8.2); eGFR NON BLACK RACES 57 (>60)
[2022-11-13 05:47] LABS: BAND NEUTROPHILS % 1 % (0-10); PLATELET MORPHOLOGY COMMENT NORMAL (NORMAL)
[2022-11-13 06:32] LABS: PROTEIN C ACTIVITY 144 % (83-168)
[2022-11-13 08:31] LABS: ABG BASE EXCESS 6.4 mmol/L (-2.0-2.0)
[2022-11-13 08:32] LABS: ABG ALLEN TEST POS; ABG HCO3 30.5 mmol/L (22-26)
[2022-11-13] MEDS: ROBITUSSIN DM PO SCH (08:44)
[2022-11-13] MEDS: PROTONIX TAB 40 MG PO SCH (08:44)
[2022-11-13] MEDS: TRICOR TAB 48 MG PO SCH (08:44)
[2022-11-13] MEDS: ELIQUIS PO SCH (08:45)
[2022-11-13] MEDS: ROCEPHIN VIAL 1 GRAM 1 G in NS 100 ML IV 100 ML IV SCH (08:45)
[2022-11-13] MEDS: PROzac PO SCH (08:45)
[2022-11-13] MEDS: SOLU-Medrol 40 MG VIAL IVP SCH (08:46)
[2022-11-13 09:25] VITALS: BP 127/75; PULSE 94; RESP 20; TEMP 98.3; O2SAT 97
[2022-11-15 07:08] LABS: PROTHROMBIN G20210A Negative
[2022-11-18] MEDS ORDERED: ELIQUIS PO SCH (09:00)
== END 2022-11-13 11:15 | disposition home or self-care (01) | DRG 175 ==
LOC: SUPCPDRO → ER 08:02 → ICU 11:05 → MED/SURG 11-12 15:20
PROVIDERS: ADMIT Internal Medicine; ATTEND Internal Medicine
DX: E78.5 Hyperlipidemia, unspecified; R79.82 Elevated C-reactive protein (CRP); K21.9 Gastro-esophageal reflux disease without esophagitis; J18.8 Other pneumonia, unspecified organism; R06.02 Shortness of breath; I26.99 Other pulmonary embolism without acute cor pulmonale; R77.8 Other specified abnormalities of plasma proteins; R79.1 Abnormal coagulation profile; Z20.822 Contact with and (suspected) exposure to COVID-19; F41.8 Other specified anxiety disorders; I10 Essential (primary) hypertension